=== PATIENT | male | born 2005 | race Caucasian/White ===

== ENCOUNTER 2024-02-23 15:26 | Inpatient (IN) | payer OTHER ==
[~2024-02-23] VITALS: Ht 182.9 cm; Wt 64.9 kg
[2024-02-23] MEDS: OLANZapine 10 MG TABLET PO ONE (19:02)
[2024-02-23] MEDS ORDERED: IPRATROPIUM BROMIDE 0.5 MG/2.5 ML NEB SOLUTION NEB PRN (20:45)
[2024-02-23] MEDS ORDERED: MAGNESIUM HYDROXIDE SUSPENSION 30 ML UDCUP PO PRN (20:45)
[2024-02-23] MEDS ORDERED: ZOLPIDEM TARTRATE 5 MG TABLET PO PRN (20:45)
[2024-02-23] MEDS ORDERED: ACETAMINOPHEN 325 MG TABLET PO PRN (20:45)
[2024-02-23] MEDS ORDERED: BISACODYL 10 MG RECTAL RECTAL SUPPOSITORY PR PRN (20:45)
[2024-02-23] MEDS ORDERED: ONDANSETRON HCL 4 MG/2 ML VIAL IVP PRN (20:45)
[2024-02-23] MEDS ORDERED: ALBUTEROL SULFATE 2.5 MG/0.5 ML NEB SOLUTION NEB PRN (20:45)
[2024-02-23 22:35] VITALS: BP 132/72; PULSE 78; RESP 18; TEMP 97.7; O2SAT 95
[2024-02-23] MEDS: HEPARIN SODIUM,PORCINE 5,000 UNITS/ML VIAL SQ SCH (23:12)
[2024-02-24 04:00] VITALS: BP 107/57; PULSE 57; RESP 20; TEMP 97.7; O2SAT 95
[2024-02-24 07:38] VITALS: BP 128/75; PULSE 71; RESP 18; TEMP 97.9; O2SAT 98
[2024-02-24 16:21] VITALS: BP 122/78; PULSE 74; RESP 18; TEMP 98.2; O2SAT 96
[2024-02-24 20:00] VITALS: BP 101/60; PULSE 72; RESP 20; TEMP 97.7; O2SAT 98
[2024-02-24] MEDS: OLANZapine 5 MG TABLET PO SCH (20:24)
[2024-02-25 04:00] VITALS: BP 105/58; PULSE 57; RESP 18; TEMP 97.9; O2SAT 98
[2024-02-25 10:30] VITALS: BP 99/56; PULSE 66; RESP 18; TEMP 97.7; O2SAT 96
[2024-02-25] MEDS ORDERED: OLAN5TAB52 PO (13:20)
== END 2024-02-25 21:05 | DRG 885 ==
LOC: EMS 15:32 → EDH 21:13 → 6S 22:35
PROVIDERS: ADMIT Hospitalist; ATTEND Hospitalist
PROC: GZ56ZZZ Individual Psychotherapy, Supportive (ICD-10-PCS; principal; 2024-02-24)
PROC: GZ52ZZZ Individual Psychotherapy, Cognitive (ICD-10-PCS; 2024-02-24)
DX: F20.0 Paranoid schizophrenia (principal); F41.1 Generalized anxiety disorder; F90.9 Attention-deficit hyperactivity disorder, unspecified type; R41.83 Borderline intellectual functioning; F12.90 Cannabis use, unspecified, uncomplicated
CPT/HCPCS: 99285; J1644